=== PATIENT | male | born 1995 | race African-American/Black ===

== ENCOUNTER 2020-04-01 14:08 | Emergency (ER) | payer OTHER ==
[~2020-04-01] VITALS: Ht 170.2 cm; Wt 70.3 kg
[2020-04-01 15:52] LABS: ABSOLUTE NEUTROPHILS 5.3 thou/uL (1.4-8.2); BASOPHILS 0.4 % (0.0-2.0); EOSINOPHILS 0.2 % (0.0-3.0); HEMATOCRIT 40.9 % (42.0-52.0); HEMOGLOBIN 13.5 gm/dL (14.0-18.0); LYMPHOCYTES 4.3 % (24.0-44.0); MCH 29.2 pg (26.0-34.0); MCHC 33.1 g/dL (28.0-37.0); MCV 88.4 fL (80.0-100.0); PLATELET COUNT 294 thou/uL (150-400); POLYS 88.1 % (36.0-66.0); RBC 4.63 mil/uL (4.50-6.00); WBC 6.1 thou/uL (4.0-11.0)
[2020-04-01 16:01] LABS: CALCIUM 8.8 mg/dL (8.5-10.1); CREATININE 1.2 mg/dL (0.7-1.3); POTASSIUM 4.3 mmol/L (3.5-5.1)
[2020-04-01 16:15] LABS: ALBUMIN 3.5 g/dL (3.4-5.0); TOTAL BILIRUBIN 0.5 mg/dL (0.2-1.0); TOTAL PROTEIN 8.2 g/dL (6.4-8.2)
[2020-04-01] MEDS ORDERED: DOXYCYCLINE 10100 MG PO (16:35)
[2020-04-01] MEDS ORDERED: TYLENOL EXTRA500 MG PO (16:35)
[2020-04-01 16:54] VITALS: BP 111/62
[2020-04-01 17:02] LABS: URINE BILIRUBIN NEGATIVE (Negative); URINE BLOOD NEGATIVE (Negative); URINE CLARITY CLEAR; URINE COLOR YELLOW; URINE GLUCOSE-RANDOM* NEGATIVE (Negative); URINE KETONES NEGATIVE (Negative); URINE LEUKOCYTES-REFLEX NEGATIVE (Negative); URINE NITRITE-REFLEX NEGATIVE (Negative); URINE PROTEIN (DIPSTICK) NEGATIVE (Negative)
== END 2020-04-01 16:54 | disposition home or self-care (01) ==
LOC: ER 14:08
PROVIDERS: Physician Assistant
DX: R50.9 Fever, unspecified (principal)

== ENCOUNTER 2020-11-02 08:32 | Emergency (ER) | payer OTHER ==
[~2020-11-02] VITALS: Ht 170.2 cm; Wt 70.3 kg
[~2020-11-02 08:32] MED LIST: DOXYCYCLINE 10100 MG PO; TYLENOL EXTRA500 MG PO
[2020-11-02 09:26] LABS: URINE BILIRUBIN NEGATIVE (Negative); URINE BLOOD NEGATIVE (Negative); URINE CLARITY CLEAR; URINE COLOR YELLOW; URINE GLUCOSE-RANDOM* NEGATIVE (Negative); URINE KETONES NEGATIVE (Negative); URINE LEUKOCYTES-REFLEX NEGATIVE (Negative); URINE NITRITE-REFLEX NEGATIVE (Negative); URINE PROTEIN (DIPSTICK) NEGATIVE (Negative); URINE SPECIFIC GRAVITY >= 1.030 (1.005-1.035); URINE UROBILINOGEN 0.2 E.U./dl (0.2-1.0)
[2020-11-02 09:28] LABS: ABSOLUTE NEUTROPHILS 5.2 thou/uL (1.4-8.2); BASOPHILS 0.5 % (0.0-2.0); EOSINOPHILS 4.3 % (0.0-3.0); HEMATOCRIT 39.6 % (42.0-52.0); HEMOGLOBIN 12.9 gm/dL (14.0-18.0); MCH 27.7 pg (26.0-34.0); MCHC 32.6 g/dL (28.0-37.0); MONOCYTES 12.1 % (1.0-8.0); PLATELET COUNT 535 thou/uL (150-400); POLYS 65.1 % (36.0-66.0); RBC 4.66 mil/uL (4.50-6.00); RDW 14.3 % (10.5-14.5)
[2020-11-02 09:34] LABS: ANION GAP 9 mmol/L (7-16); BUN 7 mg/dL (7-18); CALCIUM 9.3 mg/dL (8.5-10.1); CHLORIDE 101 mmol/L (98-107); CO2 28 mmol/L (21-32); GLUCOSE 90 mg/dL (74-106); POTASSIUM 3.7 mmol/L (3.5-5.1); SODIUM 138 mmol/L (136-145)
[2020-11-02] MEDS ORDERED: NOHOMEMEDICATIONS (09:36)
[2020-11-02 09:40] LABS: ALBUMIN 3.2 g/dL (3.4-5.0); AMYLASE 81 U/L (25-115); DIRECT BILIRUBIN < 0.1 mg/dL (<0.1-0.2); LIPASE 121 U/L (73-393); SGOT 24 U/L (15-37); SGPT 36 U/L (16-63); TOTAL BILIRUBIN 0.3 mg/dL (0.2-1.0)
[2020-11-02] MEDS ORDERED: BENTYL 10 MG CA10 M1 PO (11:18)
[2020-11-02] MEDS ORDERED: TYLENOL325 M1 PO (11:18)
[2020-11-02 11:26] VITALS: BP 129/90
== END 2020-11-02 11:26 | disposition home or self-care (01) ==
LOC: ER 08:32
PROVIDERS: Emergency Medicine
DX: K51.90 Ulcerative colitis, unspecified, without complications (principal)